=== PATIENT | male | born 1955 | race Caucasian/White ===

== ENCOUNTER 2022-02-03 08:43 | Inpatient (IN) | payer MEDICARE ==
[2022-02-03] MEDS ORDERED: Furosemide 40 MG/4 ML VIAL IVPUSH SCH (10:45)
[2022-02-03] MEDS: Enoxaparin 40 MG/0.4 ML Syringe SUBCUT SCH (11:29)
[2022-02-03] MEDS: Metoprolol Succinate 25 MG Tab.ER PO SCH (13:27)
[2022-02-03] MEDS: Lisinopril 5 MG Tab PO SCH (13:27)
[2022-02-03] MEDS: Furosemide 40 MG/4 ML VIAL IVPUSH SCH (16:31)
[2022-02-03] MEDS: metFORMIN 500 MG Tab.ER PO SCH (19:54)
[2022-02-03] MEDS: atorvaSTATin 20 MG Tab PO SCH (20:09)
[2022-02-03] MEDS ORDERED: Acetaminophen 325 MG Tab PO PRN (20:46)
[2022-02-04] MEDS: Acetaminophen 325 MG Tab PO PRN ×3 (01:25→12:14)
[2022-02-04 06:58] LABS: ESTIMATED GFR 83 mL/min (>60)
[2022-02-04] MEDS: Furosemide 40 MG/4 ML VIAL IVPUSH SCH ×2 (07:50→13:04)
[2022-02-04] MEDS: Lisinopril 5 MG Tab PO SCH (08:05)
[2022-02-04] MEDS: Metoprolol Succinate 25 MG Tab.ER PO SCH (08:06)
[2022-02-04] MEDS ORDERED: Glucagon,Human Recombinant 1 MG Vial IM PRN (08:41)
[2022-02-04] MEDS ORDERED: 50% Dextrose in Water 50 ML Syringe IVPUSH PRN (08:41)
[2022-02-04] MEDS ORDERED: Levofloxacin/Dextrose 5%-Water 750 MG in Premix Bag 1 BAG IV SCH (08:45)
[2022-02-04] MEDS: Sodium Chloride 0.9% 10 ML Syringe FLUSH PRN ×2 (08:58→22:24)
[2022-02-04] MEDS: Betamethasone Dipropionate/Clotrimazole 0.05-1% Crm 45 GM Tube TOP SCH ×2 (09:01→20:26)
[2022-02-04] MEDS ORDERED: Piperacillin/Tazobactam 3.375 GM in Sodium Chloride 0.9% 50 ML IV SCH (10:30)
[2022-02-04] MEDS: Piperacillin/Tazobactam 4.5 GM in Sodium Chloride 0.9% 100 ML IV SCH ×3 (11:15→21:49)
[2022-02-04] MEDS: Enoxaparin 40 MG/0.4 ML Syringe SUBCUT SCH (11:16)
[2022-02-04] MEDS ORDERED: Insulin Lispro 100 Unit/ML 3 ML KwikPen SUBCUT ONE (11:45)
[2022-02-04] MEDS: Insulin Lispro 100 Unit/ML 3 ML KwikPen SUBCUT SCH ×2 (11:53→17:53)
[2022-02-04] MEDS ORDERED: VANCOmycin 1.5 GM/300 ML 300 ML IV ONE (12:00)
[2022-02-04] MEDS: metFORMIN 500 MG Tab.ER PO SCH (17:55)
[2022-02-04] MEDS: atorvaSTATin 20 MG Tab PO SCH (20:26)
[2022-02-05] MEDS: Sodium Chloride 0.9% 10 ML Syringe FLUSH PRN ×6 (00:50→23:05)
[2022-02-05] MEDS: Piperacillin/Tazobactam 4.5 GM in Sodium Chloride 0.9% 100 ML IV SCH ×4 (05:01→22:35)
[2022-02-05 06:46] LABS: ESTIMATED GFR 83 mL/min (>60)
[2022-02-05] MEDS: Insulin Lispro 100 Unit/ML 3 ML KwikPen SUBCUT SCH ×3 (08:07→17:47)
[2022-02-05] MEDS: Furosemide 40 MG/4 ML VIAL IVPUSH SCH (08:59)
[2022-02-05] MEDS: Furosemide 40 MG Tab PO SCH ×2 (09:05→14:56)
[2022-02-05] MEDS: Betamethasone Dipropionate/Clotrimazole 0.05-1% Crm 45 GM Tube TOP SCH ×2 (09:05→21:35)
[2022-02-05] MEDS: Metoprolol Succinate 25 MG Tab.ER PO SCH (09:06)
[2022-02-05] MEDS: Lisinopril 5 MG Tab PO SCH (09:06)
[2022-02-05] MEDS: Acetaminophen 325 MG Tab PO PRN (09:10)
[2022-02-05] MEDS: Enoxaparin 40 MG/0.4 ML Syringe SUBCUT SCH (11:46)
[2022-02-05] MEDS: metFORMIN 500 MG Tab.ER PO SCH (17:49)
[2022-02-05] MEDS: atorvaSTATin 20 MG Tab PO SCH (21:35)
[2022-02-06] MEDS: Sodium Chloride 0.9% 10 ML Syringe FLUSH PRN ×5 (01:10→22:40)
[2022-02-06] MEDS: Piperacillin/Tazobactam 4.5 GM in Sodium Chloride 0.9% 100 ML IV SCH ×4 (04:05→22:08)
[2022-02-06 06:38] LABS: ESTIMATED GFR 74 mL/min (>60)
[2022-02-06] MEDS: Insulin Lispro 100 Unit/ML 3 ML KwikPen SUBCUT SCH ×3 (08:08→17:50)
[2022-02-06] MEDS: Metoprolol Succinate 25 MG Tab.ER PO SCH (08:11)
[2022-02-06] MEDS: Lisinopril 5 MG Tab PO SCH (08:53)
[2022-02-06] MEDS: Furosemide 40 MG Tab PO SCH ×2 (08:53→14:44)
[2022-02-06] MEDS: Betamethasone Dipropionate/Clotrimazole 0.05-1% Crm 45 GM Tube TOP SCH ×2 (10:00→20:40)
[2022-02-06] MEDS: Potassium Chloride 20 MEQ Tab.ER PO SCH ×2 (10:19→20:40)
[2022-02-06] MEDS: Enoxaparin 40 MG/0.4 ML Syringe SUBCUT SCH (10:48)
[2022-02-06] MEDS: VANCOmycin 1.25 GM/250 ML 250 ML IV SCH ×2 (11:17→23:12)
[2022-02-06] MEDS: metFORMIN 500 MG Tab.ER PO SCH (17:50)
[2022-02-06] MEDS: atorvaSTATin 20 MG Tab PO SCH (20:40)
[2022-02-07] MEDS: Sodium Chloride 0.9% 10 ML Syringe FLUSH PRN ×2 (00:45→04:50)
[2022-02-07] MEDS: Piperacillin/Tazobactam 4.5 GM in Sodium Chloride 0.9% 100 ML IV SCH (04:18)
[2022-02-07 06:31] LABS: ESTIMATED GFR 98 mL/min (>60)
[2022-02-07] MEDS: Insulin Lispro 100 Unit/ML 3 ML KwikPen SUBCUT SCH ×3 (08:33→17:43)
[2022-02-07] MEDS: Furosemide 40 MG Tab PO SCH ×2 (08:53→13:49)
[2022-02-07] MEDS: Potassium Chloride 20 MEQ Tab.ER PO SCH (08:53)
[2022-02-07] MEDS: Lisinopril 5 MG Tab PO SCH (08:54)
[2022-02-07] MEDS: Betamethasone Dipropionate/Clotrimazole 0.05-1% Crm 45 GM Tube TOP SCH ×2 (08:54→20:22)
[2022-02-07] MEDS: Metoprolol Succinate 25 MG Tab.ER PO SCH (08:55)
[2022-02-07] MEDS: metFORMIN 500 MG Tab.ER PO SCH ×2 (11:01→17:45)
[2022-02-07] MEDS: Enoxaparin 40 MG/0.4 ML Syringe SUBCUT SCH (11:09)
[2022-02-07] MEDS: atorvaSTATin 20 MG Tab PO SCH (20:21)
[2022-02-07] MEDS: Sulfamethoxazole/Trimethoprim 800-160 MG Tab PO SCH (20:22)
[2022-02-08 06:46] LABS: ESTIMATED GFR 98 mL/min (>60)
[2022-02-08] MEDS: metFORMIN 500 MG Tab.ER PO SCH ×2 (08:18→18:21)
[2022-02-08] MEDS: Insulin Lispro 100 Unit/ML 3 ML KwikPen SUBCUT SCH ×3 (08:19→18:23)
[2022-02-08] MEDS: Furosemide 40 MG Tab PO SCH ×2 (08:20→13:36)
[2022-02-08] MEDS: Potassium Chloride 20 MEQ Tab.ER PO SCH (08:21)
[2022-02-08] MEDS: Metoprolol Succinate 25 MG Tab.ER PO SCH (08:22)
[2022-02-08] MEDS: Lisinopril 5 MG Tab PO SCH (08:22)
[2022-02-08] MEDS: Sulfamethoxazole/Trimethoprim 800-160 MG Tab PO SCH ×2 (09:05→20:26)
[2022-02-08] MEDS: atorvaSTATin 20 MG Tab PO SCH (20:26)
[2022-02-09 06:38] LABS: ESTIMATED GFR 94 mL/min (>60)
[2022-02-09] MEDS: Lisinopril 5 MG Tab PO SCH (08:20)
[2022-02-09] MEDS: Furosemide 40 MG Tab PO SCH (08:21)
[2022-02-09] MEDS: Potassium Chloride 20 MEQ Tab.ER PO SCH (08:21)
[2022-02-09] MEDS: Metoprolol Succinate 25 MG Tab.ER PO SCH (08:21)
[2022-02-09] MEDS: Insulin Lispro 100 Unit/ML 3 ML KwikPen SUBCUT SCH (08:22)
[2022-02-09] MEDS: metFORMIN 500 MG Tab.ER PO SCH (08:57)
[2022-02-09] MEDS: Sulfamethoxazole/Trimethoprim 800-160 MG Tab PO SCH (08:57)
== END 2022-02-09 09:02 | DRG 602 ==
LOC: FB.MS 08:43 → OBSVTOIN 02-04 08:43
PROVIDERS: ADMIT Family Medicine; ATTEND Family Medicine
DX: I50.41 Acute combined systolic (congestive) and diastolic (congestive) heart failure (principal); E11.9 Type 2 diabetes mellitus without complications; L03.115 Cellulitis of right lower limb; R60.9 Edema, unspecified; R06.02 Shortness of breath; I50.43 Acute on chronic combined systolic (congestive) and diastolic (congestive) heart failure; J18.9 Pneumonia, unspecified organism; L03.116 Cellulitis of left lower limb; L03.119 Cellulitis of unspecified part of limb; M79.3 Panniculitis, unspecified; I87.2 Venous insufficiency (chronic) (peripheral); Z20.822 Contact with and (suspected) exposure to COVID-19; E66.01 Morbid (severe) obesity due to excess calories; N13.9 Obstructive and reflux uropathy, unspecified; I87.8 Other specified disorders of veins; E87.6 Hypokalemia; Z91.013 Allergy to seafood
CPT/HCPCS: 36415; 51702; 80053; 83880; 85025; 93306; A9270 ×9; J1650; J1940 ×3; U0002; 51701; 80048; 80202; 81003; 82947; 83605; 87040; 87070; 87077; 87147; 87186; 87205; 94150; 96374; 96376; 97116-GP; 97161-GP; 97166-GO; 97530-GO; 97530-GP; G0378; G0379; J1815; J1956; J2543; J3370; J3490; J7050

== ENCOUNTER 2022-02-09 09:12 | Inpatient (IN) | payer MEDICARE ==
[2022-02-09] MEDS ORDERED: Glucagon,Human Recombinant 1 MG Vial IM PRN ×2 (09:30→09:31)
[2022-02-09] MEDS ORDERED: Acetaminophen 325 MG Tab PO PRN (09:30)
[2022-02-09] MEDS ORDERED: 50% Dextrose in Water 50 ML Syringe IVPUSH PRN ×2 (09:30→09:31)
[2022-02-09] MEDS: Empagliflozin 10 MG Tab PO SCH (11:13)
[2022-02-09] MEDS: Insulin Lispro 100 Unit/ML 3 ML KwikPen SUBCUT SCH ×2 (11:34→18:10)
[2022-02-09] MEDS: Furosemide 40 MG Tab PO SCH (15:02)
[2022-02-09] MEDS: metFORMIN 500 MG Tab.ER PO SCH (18:14)
[2022-02-09] MEDS: Sulfamethoxazole/Trimethoprim 800-160 MG Tab PO SCH (21:01)
[2022-02-09] MEDS: atorvaSTATin 20 MG Tab PO SCH (21:01)
[2022-02-10] MEDS: Insulin Lispro 100 Unit/ML 3 ML KwikPen SUBCUT SCH ×3 (08:27→17:18)
[2022-02-10] MEDS: metFORMIN 500 MG Tab.ER PO SCH ×2 (08:30→17:18)
[2022-02-10] MEDS: Empagliflozin 10 MG Tab PO SCH (08:30)
[2022-02-10] MEDS: Furosemide 40 MG Tab PO SCH ×2 (08:30→15:17)
[2022-02-10] MEDS: Lisinopril 5 MG Tab PO SCH (08:31)
[2022-02-10] MEDS: Potassium Chloride 20 MEQ Tab.ER PO SCH (08:31)
[2022-02-10] MEDS: Sulfamethoxazole/Trimethoprim 800-160 MG Tab PO SCH ×2 (08:31→20:55)
[2022-02-10] MEDS: Metoprolol Succinate 25 MG Tab.ER PO SCH (08:32)
[2022-02-10] MEDS: atorvaSTATin 20 MG Tab PO SCH (20:54)
[2022-02-11] MEDS: Insulin Lispro 100 Unit/ML 3 ML KwikPen SUBCUT SCH ×3 (08:11→18:23)
[2022-02-11] MEDS: metFORMIN 500 MG Tab.ER PO SCH ×2 (08:12→18:23)
[2022-02-11] MEDS: Furosemide 40 MG Tab PO SCH ×2 (08:13→14:59)
[2022-02-11] MEDS: Metoprolol Succinate 25 MG Tab.ER PO SCH (08:14)
[2022-02-11] MEDS: Lisinopril 5 MG Tab PO SCH (08:14)
[2022-02-11] MEDS: Sulfamethoxazole/Trimethoprim 800-160 MG Tab PO SCH ×2 (08:15→20:18)
[2022-02-11] MEDS: Empagliflozin 10 MG Tab PO SCH (08:15)
[2022-02-11] MEDS: Potassium Chloride 20 MEQ Tab.ER PO SCH (08:15)
[2022-02-11] MEDS: atorvaSTATin 20 MG Tab PO SCH (20:18)
[2022-02-11] MEDS ORDERED: Loperamide 2 MG Cap PO PRN (20:27)
[2022-02-12] MEDS: metFORMIN 500 MG Tab.ER PO SCH ×2 (08:10→18:27)
[2022-02-12] MEDS: Empagliflozin 10 MG Tab PO SCH (08:11)
[2022-02-12] MEDS: Furosemide 40 MG Tab PO SCH ×2 (08:11→14:59)
[2022-02-12] MEDS: Insulin Lispro 100 Unit/ML 3 ML KwikPen SUBCUT SCH ×3 (08:11→18:27)
[2022-02-12] MEDS: Potassium Chloride 20 MEQ Tab.ER PO SCH (08:12)
[2022-02-12] MEDS: Metoprolol Succinate 25 MG Tab.ER PO SCH (08:12)
[2022-02-12] MEDS: Lisinopril 5 MG Tab PO SCH (08:12)
[2022-02-12] MEDS: Sulfamethoxazole/Trimethoprim 800-160 MG Tab PO SCH ×2 (08:12→20:18)
[2022-02-12] MEDS: atorvaSTATin 20 MG Tab PO SCH (20:14)
[2022-02-13] MEDS: metFORMIN 500 MG Tab.ER PO SCH (08:59)
[2022-02-13] MEDS: Insulin Lispro 100 Unit/ML 3 ML KwikPen SUBCUT SCH (09:00)
[2022-02-13] MEDS: Lisinopril 5 MG Tab PO SCH (09:01)
[2022-02-13] MEDS: Empagliflozin 10 MG Tab PO SCH (09:01)
[2022-02-13] MEDS: Potassium Chloride 20 MEQ Tab.ER PO SCH (09:01)
[2022-02-13] MEDS: Metoprolol Succinate 25 MG Tab.ER PO SCH (09:01)
[2022-02-13] MEDS: Furosemide 40 MG Tab PO SCH (09:07)
[2022-02-13] MEDS: Sulfamethoxazole/Trimethoprim 800-160 MG Tab PO SCH (09:22)
== END 2022-02-13 10:00 | disposition home health service (06) | DRG 948 ==
LOC: UNDOADMIN 09:14 → FB.MS 09:14 → UNDOADMIN 09:27 → FB.MS 09:27
PROVIDERS: ADMIT Family Medicine; ATTEND Student in an Organized Health Care Education/Training Program
DX: R53.1 Weakness (principal); I50.42 Chronic combined systolic (congestive) and diastolic (congestive) heart failure; Z68.42 Body mass index [BMI] 45.0-49.9, adult; E66.01 Morbid (severe) obesity due to excess calories; I87.2 Venous insufficiency (chronic) (peripheral); N13.9 Obstructive and reflux uropathy, unspecified; E11.65 Type 2 diabetes mellitus with hyperglycemia; Z96.643 Presence of artificial hip joint, bilateral; I11.0 Hypertensive heart disease with heart failure; M79.3 Panniculitis, unspecified; E87.6 Hypokalemia; Z91.013 Allergy to seafood
CPT/HCPCS: 82947; 97110-GO; 97110-GP; 97116-GP; 97530-GO; 97530-GP; 97535-GO; A9270-GY; J1815